=== PATIENT | male | born 1990 | race Caucasian/White ===

== ENCOUNTER 2019-11-15 14:50 | Emergency (ER) | payer MEDICAID, MEDICARE, OTHER ==
[~2019-11-15] VITALS: Ht 165.1 cm; Wt 171.0 kg
[~2019-11-15 14:50] MED LIST: DEXT10TA7 PO; DIVA125T2 PO; LEVO25TA4 PO; LITH150C PO; NICO-485 TD; TRAZ50TA66 PO
[2019-11-15 15:29] VITALS: BP 119/61
[2019-11-15] MEDS ORDERED: ARIP300S SQ (15:33)
== END 2019-11-15 16:24 | disposition home or self-care (01) ==
LOC: ED 16:23
DX: K60.0 Acute anal fissure (principal)
CPT/HCPCS: 99283

== ENCOUNTER 2020-07-04 19:15 | Emergency (ER) | payer MEDICARE ==
[~2020-07-04] VITALS: Ht 165.1 cm; Wt 164.0 kg
[~2020-07-04 19:15] MED LIST changes: +ARIP300S SQ; +CEFD300C37 PO; +LISI5TAB7 PO
--- NOTE | 2020-07-04 19:40 | NUR ---
ALL PT BELONGINGS MOVED FROM ROOM, BAGGED, LABELED, AND PLACED IN PSYCH LOCKER. GARAGE DOORS PULLED. SITTER IN DIRECT LINE OF SIGHT. L2K PLACED ON CHART WITH ERP. PT DENIES ANY NEEDS OR CONCERNS AT THIS TIME.
--- NOTE | 2020-07-04 20:27 | NUR ---
PT SNORING LOUDLY, ROUSED PER VERBAL STIMULI. PT PROVIDED WITH URINAL FOR UDS COLLECTION. VERBALIZES UNDERSTANDING. UPDATED ON EXPECTATIONS AND PROCEDURE FOR TELEPSYCH. DENIES ANY CURRENT NEEDS OR CONCERNS.
[2020-07-04 20:45] LABS: BASOPHILS % (AUTO) 1 % (0-1); EOSINOPHILS % (AUTO) 3 % (1-7); LYMPHOCYTES % (AUTO) 22 % (22-44); MEAN CORPUSCULAR HEMOGLOBIN 30.2 pg (27.5-34.5); MEAN PLATELET VOLUME 8.8 fL (7.4-10.4); MONOCYTES % (AUTO) 9 % (2-9); NEUTROPHILS % (AUTO) 65 % (42-75); PLATELET COUNT 298 x10^3/uL (130-400); RED BLOOD COUNT 5.57 x10^6/uL (4.38-5.82); RED CELL DISTRIBUTION WIDTH 16.8 % (9.4-14.8)
[2020-07-04 20:46] LABS: MD NO
[2020-07-04 20:57] LABS: ALBUMIN 3.1 g/dL (3.4-5.0); ANION GAP 4 mmol/L (5-15); CALCIUM 9.4 mg/dL (8.5-10.1); CHLORIDE 104 mmol/L (98-107); CREATININE 0.98 mg/dL (0.7-1.3)
--- NOTE | 2020-07-04 21:03 | NUR ---
PT PROVIDED WITH WATER AND REMINDED OF NEED FOR A URINE SAMPLE.
--- NOTE | 2020-07-04 21:14 | NUR ---
THROUGHPUT RN: TELEPSYCH CONSULT REQUESTED.
[2020-07-04 21:19] LABS: SALICYLATE LEVEL < 1.7 mg/dL (2.8-20.0)
--- NOTE | 2020-07-04 21:25 | NUR ---
PT REMINDED OF NEED FOR URINE SAMPLE. DENIES ABILITY TO URINATE AT THIS TIME. TELEPSYCH MONITOR ACTIVE AT THIS TIME.
--- NOTE | 2020-07-04 22:33 | NUR ---
PT RESTING IN BED, EYES CLOSED. STILL HAS NOT PROVIDED A URINE SAMPLE. PT AWARE OF NEED. NAD NOTED. SITTER CONTINUES IN DIRECT LINE OF SIGHT.
[2020-07-05 00:01] LABS: AMPHETAMINE SCREEN, URINE Negative (Negative); BARBITURATE SCREEN, URINE Negative (Negative); BENZODIAZEPINE SCREEN, URINE Negative (Negative); CANNABINOID SCREEN, URINE Negative (Negative); COCAINE SCREEN, URINE Negative (Negative); METHADONE SCREEN, URINE Negative (Negative); OPIATE SCREEN, URINE Negative (Negative)
--- NOTE | 2020-07-05 01:34 | NUR ---
PT SLEEPING SOUNDLY IN BED, SITTER CONTINUES IN DIRECT LINE OF SIGHT.
--- NOTE | 2020-07-05 03:53 | NUR ---
PT RESTING IN BED ON HIS LEFT SIDE, SNORING ALOUD. RESPIRATIONS EVEN AND UNLABORED. NAD NOTED. SITTER CONTINUES IN DIRECT LINE OF SIGHT.
--- NOTE | 2020-07-05 04:37 | NUR ---
PT CONTINUES SLEEPING SOUNDLY, IN DIRECT LINE OF SITTER. NAD NOTED.
--- NOTE | 2020-07-05 06:41 | NUR ---
PT UP TO RESTROOM, SITTER AT SIDE. DENIES ANY NEEDS OR CONCERNS AT THIS TIME.
--- NOTE | 2020-07-05 07:12 | NUR ---
Report received and care assumed. Pt lying on Right side, with sleep apnea-patterned respirations in combination with snoring when he starts breathing after a pause. Room cleaned and RN and PSA posted outside of room to ensure pt safety from self and falls. Room cleared of any belongings or items with exception of teledoc robot.
--- NOTE | 2020-07-05 09:30 | NUR ---
Pt ate 100% of his breakfast tray, sitting in chair in room A/O x4 and requests his mother be contacted to let her know where he is and that he is safe.
--- NOTE | 2020-07-05 10:20 | NUR ---
Pt lying on right side in bed sleeping at this time.
--- NOTE | 2020-07-05 13:14 | NUR ---
Pt moving in room from chair to bed, falls asleep briefly, then gets back up. States he feels restless since he knows he is waiting for transport to [facility].
--- NOTE | 2020-07-05 14:00 | NUR ---
Pt sitting up in chair and provided snacks and juice while awaiting transport crew. Affect is calm, cooperative and verbalized gratitude for care.
[2020-07-05 14:55] VITALS: BP 126/60
== END 2020-07-05 14:58 ==
LOC: ED 19:40
DX: S51.812A Laceration without foreign body of left forearm, initial encounter (principal); R45.851 Suicidal ideations; F32.9 Major depressive disorder, single episode, unspecified; E03.9 Hypothyroidism, unspecified; F15.10 Other stimulant abuse, uncomplicated; F17.210 Nicotine dependence, cigarettes, uncomplicated; W45.8XXA Other foreign body or object entering through skin, initial encounter; Y93.89 Activity, other specified; Y92.89 Other specified places as the place of occurrence of the external cause; Y99.8 Other external cause status
CPT/HCPCS: 36415; 80048; 80299; 80307; 80320; 80329; 82040; 85025; 99285; 99406; G0480

== ENCOUNTER 2020-08-31 17:55 | Emergency (ER) | payer MEDICARE, MEDICAID ==
[~2020-08-31] VITALS: Ht 165.1 cm; Wt 130.0 kg
--- NOTE | 2020-08-31 18:13 | NUR ---
PT BIB [facility]. PT HAS HISTORY OF DEPRESSION/ANXIETY AND SUBSTANCE ABUSE. PT WAS ADMITTED TO [facility] 2 MONTHS AGO FOR SI. PT PRESENTS TODAY WITH SI AGAIN. PT STATES THAT HE WANTED TO CUT HIMSELF IN ATTEMPT TO KILL HIMSELF. PT STATED THAT HE STARTED CUTTING HIS FOREARM TODAY, BUT THEN CALLED 911 FOR HELP. SUPERFICIAL CUTS NOTED ON LEFT FOREARM. SAFETY PRECAUTIONS IN PLACE. PT BELONGINGS PLACED IN LOCKER
--- NOTE | 2020-08-31 18:40 | NUR ---
ZOË LUZ AT BEDSIDE FOR EVALUATION
--- NOTE | 2020-08-31 18:45 | NUR ---
Report to Yoni moura
--- NOTE | 2020-08-31 18:48 | NUR ---
REPORT GIVEN TO SILVIA DURON
[2020-08-31] MEDS ORDERED: LORazepam 1MG TABLET ONE (19:00)
[2020-08-31] MEDS ORDERED: LORazepam 1MG TABLET PO ONE (19:00)
[2020-08-31 19:03] LABS: BASOPHILS % (AUTO) 1 % (0-1); EOSINOPHILS % (AUTO) 3 % (1-7); LYMPHOCYTES % (AUTO) 20 % (22-44); MEAN CORPUSCULAR HEMOGLOBIN 30.8 pg (27.5-34.5); MEAN CORPUSCULAR HGB CONC 33.4 g/dL (33.2-36.2); MEAN PLATELET VOLUME 8.8 fL (7.4-10.4); MONOCYTES % (AUTO) 6 % (2-9); NEUTROPHILS % (AUTO) 70 % (42-75); PLATELET COUNT 300 x10^3/uL (130-400); RED BLOOD COUNT 5.85 x10^6/uL (4.38-5.82); RED CELL DISTRIBUTION WIDTH 16.3 % (9.4-14.8)
[2020-08-31 19:04] LABS: MD NO
[2020-08-31 19:13] LABS: ALANINE AMINOTRANSFERASE 36 U/L (12-78); ALBUMIN 3.5 g/dL (3.4-5.0); ANION GAP 6 mmol/L (5-15); CALCIUM 9.2 mg/dL (8.5-10.1); CHLORIDE 107 mmol/L (98-107); CREATININE 0.98 mg/dL (0.7-1.3)
[2020-08-31 19:15] LABS: ALKALINE PHOSPHATASE 72 U/L (45-117); BILIRUBIN,TOTAL 0.8 mg/dL (0.2-1.0); TOTAL PROTEIN 7.8 g/dL (6.4-8.2)
[2020-08-31 19:18] LABS: SALICYLATE LEVEL < 1.7 mg/dL (2.8-20.0)
--- NOTE | 2020-08-31 21:14 | NUR ---
pt resting in bed, pt room si secure with sitter at pt door. pt has no complaints at this time.
--- NOTE | 2020-08-31 21:14 | NUR ---
pt aware that urine is needed for placement.
[2020-08-31 22:28] LABS: AMPHETAMINE SCREEN, URINE Negative (Negative); BARBITURATE SCREEN, URINE Negative (Negative); BENZODIAZEPINE SCREEN, URINE Negative (Negative); CANNABINOID SCREEN, URINE Negative (Negative); COCAINE SCREEN, URINE Negative (Negative); METHADONE SCREEN, URINE Negative (Negative); OPIATE SCREEN, URINE Negative (Negative)
[2020-08-31 22:33] VITALS: BP 136/87
[2020-08-31] MEDS ORDERED: NEOSPORIN OINT. PKT 1 PACKET ONE (22:37)
[2020-08-31] MEDS ORDERED: GABAPENTIN 300 MG CAPSULE PO ONE (23:00)
[2020-08-31] MEDS ORDERED: ARIPIPRAZOLE 400 MG INJ NC IM ONE (23:00)
[2020-08-31] MEDS ORDERED: DIPH,PERTUSS(ACELL),TET VAC/PF 0.5 ML IM-VACC ONE ×2 (23:30→23:32)
[2020-08-31] MEDS ORDERED: GABAPENTIN 300 MG CAPSULE ONE (23:31)
[2020-08-31] MEDS ORDERED: QUETIAPINE 100MG TABLET ONE (23:31)
[2020-09-01] MEDS ORDERED: QUETIAPINE 100MG TABLET PO SCH (21:00)
[2020-09-02] MEDS ORDERED: METF500T17 PO (11:14)
[2020-09-02] MEDS ORDERED: BUPR100T11 PO (11:14)
[2020-09-02] MEDS ORDERED: ARIP10TA33 PO (11:14)
[2020-09-02] MEDS ORDERED: TOPI25TA8 PO (11:14)
[2020-09-02] MEDS ORDERED: GABA300C PO (11:14)
== END 2020-09-01 01:39 ==
LOC: ED 20:19 → 3E 09-01 00:05 → UNDOADMIN 09-01 00:05 → 3E 09-01 00:13 → UNDOADMIN 09-01 00:13 → ED 09-01 01:39
DX: S51.812A Laceration without foreign body of left forearm, initial encounter (principal); Z20.822 Contact with and (suspected) exposure to COVID-19; R45.851 Suicidal ideations; F20.9 Schizophrenia, unspecified; F32.9 Major depressive disorder, single episode, unspecified; F17.210 Nicotine dependence, cigarettes, uncomplicated; E03.9 Hypothyroidism, unspecified; Y33.XXXA Other specified events, undetermined intent, initial encounter; Y93.89 Activity, other specified; Y92.89 Other specified places as the place of occurrence of the external cause; Y99.8 Other external cause status
CPT/HCPCS: 36415; 80053; 80299; 80307; 80320; 80329; 85025; 87426; 90471; 90715; 96372; 99285; 99406; G0480

== ENCOUNTER 2020-09-01 00:32 | Inpatient (IN) | payer MEDICAID, MEDICARE ==
[~2020-09-01] VITALS: Ht 165.1 cm; Wt 185.8 kg
[2020-09-01] MEDS ORDERED: ONDANSETRON ODT 4 MG PO PRN (01:00)
[2020-09-01] MEDS ORDERED: DOCUSATE 100 MG CAPSULE PO PRN (01:00)
[2020-09-01] MEDS ORDERED: BISACODYL 10 MG SUPP PR PRN (01:00)
[2020-09-01] MEDS ORDERED: POLYETHYLENE GLYCOL 17 GM PACKET PO PRN (01:00)
[2020-09-01 01:30] VITALS: BP 105/79
[2020-09-01 01:58] LABS: MICROSCOPIC NOT IND
[2020-09-01] MEDS ORDERED: PLEASE ENTER HEIGHT AND WEIGHT MC SCH (02:00)
[2020-09-01 03:09] LABS: CHOL/HDL RATIO 5.4; FREE T4 (FREE THYROXINE) 0.79 ng/dL (0.76-1.46); LDL/HDL RATIO 2.8 (0.5-3.0)
[2020-09-01 07:36] VITALS: BP 106/70
[2020-09-01] MEDS ORDERED: NICOTINE 7 MG/24 HR PATCH.TD24 TD SCH (14:30)
[2020-09-01] MEDS: FLUOXETINE 10 MG CAP PO SCH (15:22)
[2020-09-01 19:38] VITALS: BP 130/80
[2020-09-01] MEDS: ZIPRASIDONE 20MG CAPSULE PO SCH (20:03)
[2020-09-01] MEDS ORDERED: TOPIRAMATE 25 MG TABLET PO SCH (21:00)
[2020-09-02 07:35] VITALS: BP 102/68
[2020-09-02] MEDS: LISINOPRIL 5 MG TABLET PO SCH (08:28)
[2020-09-02] MEDS: FLUOXETINE 10 MG CAP PO SCH (08:45)
[2020-09-02] MEDS: LEVOTHYROXINE 25 MCG TABLET PO SCH (08:47)
[2020-09-02] MEDS ORDERED: LEVOTHYROXINE 25 MCG TABLET PO SCH (09:00)
[2020-09-02] MEDS ORDERED: GABA300C PO (11:14)
[2020-09-02] MEDS ORDERED: BUPR100T11 PO (11:14)
[2020-09-02] MEDS ORDERED: TOPI25TA8 PO (11:14)
[2020-09-02] MEDS ORDERED: ARIP10TA33 PO (11:14)
[2020-09-02] MEDS ORDERED: METF500T17 PO (11:14)
[2020-09-02 19:34] VITALS: BP 119/78
[2020-09-02] MEDS: ZIPRASIDONE 20MG CAPSULE PO SCH (19:59)
[2020-09-02] MEDS: TOPIRAMATE 25 MG TABLET PO SCH (20:00)
[2020-09-03] MEDS: LEVOTHYROXINE 25 MCG TABLET PO SCH (05:21)
[2020-09-03 07:51] VITALS: BP 112/72
[2020-09-03] MEDS: LISINOPRIL 5 MG TABLET PO SCH (09:00)
[2020-09-03] MEDS: FLUOXETINE 10 MG CAP PO SCH (09:44)
[2020-09-03] MEDS: ACETAMINOPHEN 325 MG TABLET PO PRN (09:44)
[2020-09-03 19:45] VITALS: BP 126/88
[2020-09-03] MEDS: ZIPRASIDONE 40MG CAPSULE PO SCH (20:36)
[2020-09-03] MEDS: TOPIRAMATE 25 MG TABLET PO SCH (20:37)
[2020-09-04] MEDS: LEVOTHYROXINE 25 MCG TABLET PO SCH (06:14)
[2020-09-04] MEDS: ACETAMINOPHEN 325 MG TABLET PO PRN ×2 (08:42→20:03)
[2020-09-04] MEDS: FLUOXETINE HCL 20 MG CAPSULE PO SCH (08:42)
[2020-09-04 10:20] VITALS: BP 126/79
[2020-09-04 19:19] VITALS: BP 117/73
[2020-09-04] MEDS: TOPIRAMATE 25 MG TABLET PO SCH (20:04)
[2020-09-04] MEDS: ZIPRASIDONE 40MG CAPSULE PO SCH (20:04)
[2020-09-05] MEDS: LEVOTHYROXINE 25 MCG TABLET PO SCH (06:16)
[2020-09-05 07:57] VITALS: BP 135/82
[2020-09-05] MEDS: FLUOXETINE HCL 20 MG CAPSULE PO SCH (08:39)
[2020-09-05 19:30] VITALS: BP 134/82
[2020-09-05] MEDS: ZIPRASIDONE 40MG CAPSULE PO SCH (20:02)
[2020-09-05] MEDS: TOPIRAMATE 25 MG TABLET PO SCH (20:03)
[2020-09-06] MEDS: LEVOTHYROXINE 25 MCG TABLET PO SCH (06:12)
[2020-09-06 07:50] VITALS: BP 143/89
[2020-09-06] MEDS: FLUOXETINE HCL 20 MG CAPSULE PO SCH (08:25)
[2020-09-06 19:30] VITALS: BP 141/83
[2020-09-06] MEDS: ZIPRASIDONE 40MG CAPSULE PO SCH (20:03)
[2020-09-06] MEDS: TOPIRAMATE 100 MG TABLET PO SCH (20:04)
[2020-09-07] MEDS: LEVOTHYROXINE 25 MCG TABLET PO SCH (05:44)
[2020-09-07 08:00] VITALS: BP 133/82
[2020-09-07] MEDS: FLUOXETINE HCL 20 MG CAPSULE PO SCH (08:17)
[2020-09-07 16:44] VITALS: BP 133/82
[2020-09-07 19:30] VITALS: BP 124/80
[2020-09-07] MEDS: TOPIRAMATE 100 MG TABLET PO SCH (19:49)
[2020-09-07] MEDS: ZIPRASIDONE 40MG CAPSULE PO SCH (19:49)
[2020-09-08] MEDS: LEVOTHYROXINE 25 MCG TABLET PO SCH (05:34)
[2020-09-08 07:27] VITALS: BP 137/90
[2020-09-08] MEDS: FLUOXETINE HCL 20 MG CAPSULE PO SCH (09:05)
[2020-09-08] MEDS ORDERED: TOPI100T24 PO (16:30)
[2020-09-08] MEDS ORDERED: ZIPR40CA2 PO (16:30)
[2020-09-08] MEDS ORDERED: FLUO20CA23 PO (16:30)
[2020-09-08] MEDS ORDERED: LEVO25TA2 PO (16:30)
[2020-09-08 19:22] VITALS: BP 125/80
[2020-09-08] MEDS: TOPIRAMATE 100 MG TABLET PO SCH (20:14)
[2020-09-08] MEDS: ZIPRASIDONE 40MG CAPSULE PO SCH (20:14)
[2020-09-09] MEDS ORDERED: CALCIUM CARBONATE 500 MG TAB.CHEW PO PRN (03:30)
[2020-09-09] MEDS: LEVOTHYROXINE 25 MCG TABLET PO SCH (05:25)
[2020-09-09 08:19] VITALS: BP 107/76
[2020-09-09] MEDS: FLUOXETINE HCL 20 MG CAPSULE PO SCH (09:01)
== END 2020-09-09 10:05 | disposition home or self-care (01) | DRG 885 ==
LOC: 3E 00:33 → UNDOADMIN 00:33 → 3E 01:34
PROVIDERS: ADMIT Psychiatry & Neurology Psychosomatic Medicine; ATTEND Psychiatry & Neurology Psychosomatic Medicine
DX: F25.0 Schizoaffective disorder, bipolar type (principal); F15.20 Other stimulant dependence, uncomplicated; Z68.44 Body mass index [BMI] 60.0-69.9, adult; R45.851 Suicidal ideations; E03.9 Hypothyroidism, unspecified; E66.01 Morbid (severe) obesity due to excess calories; G47.33 Obstructive sleep apnea (adult) (pediatric); G47.419 Narcolepsy without cataplexy; F17.210 Nicotine dependence, cigarettes, uncomplicated; G89.29 Other chronic pain; Z79.84 Long term (current) use of oral hypoglycemic drugs; Z79.899 Other long term (current) drug therapy; Z91.5 Personal history of self-harm; Z56.0 Unemployment, unspecified
CPT/HCPCS: 36415; 71045; 80061; 81003; 84439; 84443; 93005; 94660

== ENCOUNTER 2020-09-18 19:02 | Emergency (ER) | payer MEDICARE ==
[~2020-09-18] VITALS: Ht 165.1 cm; Wt 136.0 kg
[~2020-09-18 19:02] MED LIST changes: +ARIP10TA33 PO; +BUPR100T11 PO; +FLUO20CA23 PO; +GABA300C PO; +LEVO25TA2 PO; +METF500T17 PO; +TOPI100T24 PO; +TOPI25TA8 PO; +ZIPR40CA2 PO
[2020-09-18 19:03] VITALS: BP 116/75
--- NOTE | 2020-09-18 19:23 | NUR ---
PT STATES HE HASNT BEEN ABLE TO SLEEP IN WEEKS BECAUSE HIS CPAP MACHINE IS BROKEN AND HE SMOKES METH OCCASIONALLY. WHEN ASKED IF HE IS HAVING THOUGHTS ABOUT WANTING TO HURT HIMSELF HE STATES "A LITTLE BIT" PT STATES HE HAS BEEN OFF OF HIS PSYCH MEDS FOR ABOUT 3 DAYS AND IS NOW HEARING VOICES. PLAN TO HURT HIMSELF IS TO SHOOT HIMSELF IN THE HEAD. PT DOES NOT OWN OR HAVE EASY ACCESS TO A GUN, HE SAYS. ALL BELONGINGS COLLECETED INTO A PT BELONGINGS BAG AND PLACED INTO LOCKER. ROOM SECURED AND SITTER AT BEDSIDE FOR FREQUENT CHECKS.
[2020-09-18 20:34] LABS: BASOPHILS % (AUTO) 2 % (0-1); EOSINOPHILS % (AUTO) 3 % (1-7); LYMPHOCYTES % (AUTO) 20 % (22-44); MEAN CORPUSCULAR HEMOGLOBIN 30.7 pg (27.5-34.5); MEAN CORPUSCULAR HGB CONC 33.5 g/dL (33.2-36.2); MEAN PLATELET VOLUME 9.1 fL (7.4-10.4); MONOCYTES % (AUTO) 7 % (2-9); NEUTROPHILS % (AUTO) 68 % (42-75); PLATELET COUNT 311 x10^3/uL (130-400); RED BLOOD COUNT 5.61 x10^6/uL (4.38-5.82); RED CELL DISTRIBUTION WIDTH 15.9 % (9.4-14.8)
[2020-09-18 20:42] LABS: MD NO
[2020-09-18 20:43] LABS: ALANINE AMINOTRANSFERASE 27 U/L (12-78); ALBUMIN 3.3 g/dL (3.4-5.0); ANION GAP 5 mmol/L (5-15); CALCIUM 8.6 mg/dL (8.5-10.1); CHLORIDE 107 mmol/L (98-107); CREATININE 0.77 mg/dL (0.7-1.3)
[2020-09-18 20:46] LABS: ALKALINE PHOSPHATASE 58 U/L (45-117); BILIRUBIN,TOTAL 0.6 mg/dL (0.2-1.0); TOTAL PROTEIN 7.1 g/dL (6.4-8.2)
[2020-09-18] MEDS ORDERED: ZIPRASIDONE 40MG CAPSULE PO SCH (21:00)
[2020-09-18 21:02] LABS: SALICYLATE LEVEL < 1.7 mg/dL (2.8-20.0)
[2020-09-18 21:45] LABS: AMPHETAMINE SCREEN, URINE Negative (Negative); BARBITURATE SCREEN, URINE Negative (Negative); BENZODIAZEPINE SCREEN, URINE Negative (Negative); CANNABINOID SCREEN, URINE Positive (Negative); COCAINE SCREEN, URINE Negative (Negative); METHADONE SCREEN, URINE Negative (Negative); OPIATE SCREEN, URINE Negative (Negative)
--- NOTE | 2020-09-18 21:52 | NUR ---
PT RESTING ON GURNEY. PT AMBULATED TO BATHROOM FOR URINE SAMPLE. PT TO RECIEVE TELEPSYCH CONSULT.
[2020-09-18] MEDS ORDERED: ZIPRASIDONE 20MG CAPSULE ONE (21:55)
[2020-09-18] MEDS ORDERED: FLUOXETINE HCL 20 MG CAPSULE ONE (21:56)
--- NOTE | 2020-09-18 22:33 | NUR ---
PER LAW, PT TO BE MEDICATED AND TO BE DSICHARGED. PT BELONGINGS RETURNED.
[2020-09-19] MEDS ORDERED: FLUOXETINE HCL 20 MG CAPSULE PO SCH (09:00)
[2020-09-19] MEDS ORDERED: TOPIRAMATE 100 MG TABLET PO SCH (09:00)
== END 2020-09-18 22:49 | disposition home or self-care (01) ==
LOC: ED 22:43
DX: F15.151 Other stimulant abuse with stimulant-induced psychotic disorder with hallucinations (principal); F20.9 Schizophrenia, unspecified; F31.9 Bipolar disorder, unspecified; E03.9 Hypothyroidism, unspecified; F17.210 Nicotine dependence, cigarettes, uncomplicated; Z72.9 Problem related to lifestyle, unspecified
CPT/HCPCS: 36415; 80053; 80299; 80307; 80320; 80329; 85025; 99284; 99406; Q0177; G0480

== ENCOUNTER 2020-10-30 14:39 | Emergency (ER) | payer MEDICARE ==
[~2020-10-30] VITALS: Ht 165.1 cm; Wt 159.0 kg
[~2020-10-30 14:39] MED LIST changes: +AZIT250T89 PO
--- NOTE | 2020-10-30 14:45 | NUR ---
Assumed care of pt.
[2020-10-30] MEDS ORDERED: ARIP400S3 IM (15:05)
[2020-10-30] MEDS ORDERED: ARIPIPRAZOLE 400 MG INJ NC IM ONE (15:30)
[2020-10-30] MEDS ORDERED: FLUOXETINE 10 MG CAP PO ONE (15:30)
[2020-10-30] MEDS ORDERED: ARIPIPRAZOLE 10 MG TABLET PO ONE (15:30)
[2020-10-30 15:43] LABS: ALBUMIN 3.5 g/dL (3.4-5.0); ANION GAP 5 mmol/L (5-15); CALCIUM 9.4 mg/dL (8.5-10.1); CHLORIDE 102 mmol/L (98-107); CREATININE 0.86 mg/dL (0.7-1.3); SALICYLATE LEVEL 1.8 mg/dL (2.8-20.0)
[2020-10-30] MEDS ORDERED: ARIPIPRAZOLE 10 MG TABLET ONE (15:47)
[2020-10-30] MEDS ORDERED: FLUOXETINE 10 MG CAP ONE (15:48)
[2020-10-30 15:54] LABS: MEAN CORPUSCULAR HEMOGLOBIN 31.3 pg (27.5-34.5); MEAN CORPUSCULAR HGB CONC 33.8 g/dL (33.2-36.2); PLATELET COUNT 334 x10^3/uL (130-400); RED CELL DISTRIBUTION WIDTH 16.3 % (9.4-14.8)
[2020-10-30 15:57] LABS: MD YES
[2020-10-30 16:25] LABS: BAND#(MANUAL) 0.53 x10^3/uL; BANDS%(MANUAL) 3 % (0-7); EOS#(MANUAL) 0.35 x10^3/uL (0.0-0.4); EOS% (MANUAL) 2 % (1-7); LYMPHS% (MANUAL) 20 % (22-44); MONOS#(MANUAL) 1.05 x10^3/uL (0.3-2.7); MONOS% (MANUAL) 6 % (2-9); SEG#(MANUAL) 12.08 x10^3/uL (1.8-6.8); SEGS% (MANUAL) 69 % (42-75)
[2020-10-30 16:26] LABS: <PLATELET ESTIMATE> ADEQUATE; ANISOCYTOSIS 1+; POLYCHROMASIA 1+
[2020-10-30 16:27] LABS: <PLT MORPHOLOGY> NORMAL PLT MORPH
--- NOTE | 2020-10-30 16:48 | NUR ---
pt voided, but missed the hat. Additional fluids provided to pt with instruction to place hat in toilet when he needs to void so we can collect urine.
[2020-10-30 17:10] LABS: MICROSCOPIC NOT IND
[2020-10-30 17:23] LABS: AMPHETAMINE SCREEN, URINE Negative (Negative); BARBITURATE SCREEN, URINE Negative (Negative); BENZODIAZEPINE SCREEN, URINE Negative (Negative); CANNABINOID SCREEN, URINE Negative (Negative); COCAINE SCREEN, URINE Negative (Negative); METHADONE SCREEN, URINE Negative (Negative); OPIATE SCREEN, URINE Negative (Negative)
--- NOTE | 2020-10-30 18:10 | NUR ---
PATIENT IS HAVING ANXIETY AND IS REQUESTING A MEDICATION. CALLED [facility], WHO IS ORDERING PRN ANXIETY MEDS.
--- NOTE | 2020-10-30 18:20 | NUR ---
THROUGHPUT: PT MEDICALLY CLEARED, ON LEGAL HOLD AWAITING [facility] FOR ACCEPTING MD AND ROOM NUMBER
[2020-10-30] MEDS ORDERED: LORazepam 1MG TABLET PO PRN (18:30)
--- NOTE | 2020-10-30 19:54 | NUR ---
PT ANXIOUS AND WONDERING WHEN HE WILL GO UPSTAIRS. PT ADVISED THAT RN WILL CALL REPORT SOON WHEN THEYRE READY UPSTAIRS, AND PT MEDICATED WITH PRN MEDS FOR ANXIETY AND VERBALIZED COMFORT.
[2020-10-30 20:11] VITALS: BP 127/68
--- NOTE | 2020-10-30 21:48 | NUR ---
PT TAKEN TO U UNIT, WITH TECH, AND PTS BELONGINGS TAKEN WITH PT, FROM LOCKED UNIT.
== END 2020-10-30 21:51 ==
LOC: ED 15:55
DX: R45.851 Suicidal ideations (principal); E03.9 Hypothyroidism, unspecified; F20.9 Schizophrenia, unspecified; Z20.822 Contact with and (suspected) exposure to COVID-19
CPT/HCPCS: 36415; 71045; 80048; 80299; 80307; 80320; 81003; 82040; 85025; 87426; 96372; 99285; Q0177; 80329; G0480

== ENCOUNTER 2020-10-30 16:35 | Inpatient (IN) | payer MEDICARE ==
[~2020-10-30] VITALS: Ht 165.1 cm; Wt 186.2 kg
[~2020-10-30 16:35] MED LIST changes: +ARIP400S3 IM
[2020-10-30] MEDS ORDERED: ACETAMINOPHEN 325 MG TABLET PO PRN (20:30)
[2020-10-30] MEDS ORDERED: HYDROXYZINE PAMOATE 50MG CAP PO PRN (20:30)
[2020-10-30] MEDS: TOPIRAMATE 100 MG TABLET PO SCH (23:00)
[2020-10-30] MEDS: ZIPRASIDONE 40MG CAPSULE PO SCH (23:01)
[2020-10-30 23:29] VITALS: BP 126/77
[2020-10-31] MEDS ORDERED: CALCIUM CARBONATE 500 MG TAB.CHEW PO PRN (01:00)
[2020-10-31 06:02] LABS: CHLORIDE 104 mmol/L (98-107)
[2020-10-31] MEDS: LEVOTHYROXINE 25 MCG TABLET PO SCH (06:06)
[2020-10-31 06:30] VITALS: BP 129/77
[2020-10-31 06:37] LABS: ALANINE AMINOTRANSFERASE 28 U/L (12-78); ALBUMIN 3.4 g/dL (3.4-5.0); ALKALINE PHOSPHATASE 66 U/L (45-117); ANION GAP 4 mmol/L (5-15); BILIRUBIN,TOTAL 0.9 mg/dL (0.2-1.0); CALCIUM 9.3 mg/dL (8.5-10.1); CREATININE 0.69 mg/dL (0.7-1.3); FREE T4 (FREE THYROXINE) 0.77 ng/dL (0.76-1.46); TOTAL PROTEIN 7.4 g/dL (6.4-8.2)
[2020-10-31] MEDS: NICOTINE 21 MG/24 HR PATCH.TD24 TD SCH (08:32)
[2020-10-31] MEDS: LISINOPRIL 5 MG TABLET PO SCH (08:32)
[2020-10-31] MEDS: FLUOXETINE HCL 20 MG CAPSULE PO SCH (08:32)
[2020-10-31 19:40] VITALS: BP 113/74
[2020-10-31] MEDS: TOPIRAMATE 100 MG TABLET PO SCH (20:07)
[2020-10-31] MEDS: ZIPRASIDONE 40MG CAPSULE PO SCH (20:07)
[2020-11-01 05:37] LABS: BASOPHILS % (AUTO) 2 % (0-1); EOSINOPHILS % (AUTO) 2 % (1-7); LYMPHOCYTES % (AUTO) 18 % (22-44); MEAN CORPUSCULAR HGB CONC 33.6 g/dL (33.2-36.2); MEAN PLATELET VOLUME 8.5 fL (7.4-10.4); MONOCYTES % (AUTO) 7 % (2-9); NEUTROPHILS % (AUTO) 72 % (42-75); PLATELET COUNT 283 x10^3/uL (130-400); RED BLOOD COUNT 5.44 x10^6/uL (4.38-5.82); RED CELL DISTRIBUTION WIDTH 16.2 % (9.4-14.8)
[2020-11-01 05:41] LABS: MD NO
[2020-11-01] MEDS: LEVOTHYROXINE 25 MCG TABLET PO SCH (06:22)
[2020-11-01 07:20] VITALS: BP 112/79
[2020-11-01] MEDS: NICOTINE 21 MG/24 HR PATCH.TD24 TD SCH (09:00)
[2020-11-01] MEDS: LISINOPRIL 5 MG TABLET PO SCH (09:28)
[2020-11-01] MEDS: FLUOXETINE HCL 20 MG CAPSULE PO SCH (09:29)
[2020-11-01 19:35] VITALS: BP 95/65
[2020-11-01] MEDS: TOPIRAMATE 100 MG TABLET PO SCH (20:21)
[2020-11-01] MEDS: ZIPRASIDONE 40MG CAPSULE PO SCH (20:21)
[2020-11-02] MEDS: LEVOTHYROXINE 25 MCG TABLET PO SCH (05:19)
[2020-11-02 07:50] VITALS: BP 129/84
[2020-11-02 07:53] VITALS: BP 132/82
== END 2020-11-02 08:00 | disposition home or self-care (01) | DRG 885 ==
LOC: 3E 20:43
PROVIDERS: ADMIT Psychiatry & Neurology Psychosomatic Medicine; ATTEND Psychiatry & Neurology Psychosomatic Medicine
PROC: 5A09457 Assistance with Respiratory Ventilation, 24-96 Consecutive Hours, Continuous Positive Airway Pressure (ICD-10-PCS; principal; 2020-10-30)
DX: F25.0 Schizoaffective disorder, bipolar type (principal); R45.851 Suicidal ideations; F15.20 Other stimulant dependence, uncomplicated; Z68.44 Body mass index [BMI] 60.0-69.9, adult; G47.30 Sleep apnea, unspecified; E66.01 Morbid (severe) obesity due to excess calories; E03.9 Hypothyroidism, unspecified; G47.33 Obstructive sleep apnea (adult) (pediatric); D75.1 Secondary polycythemia; R73.03 Prediabetes; D72.828 Other elevated white blood cell count; F17.210 Nicotine dependence, cigarettes, uncomplicated; Z56.0 Unemployment, unspecified
CPT/HCPCS: 36415; 36600; 71045; 80053; 82607; 82803; 84145; 84439; 84443; 85025; 93005; 94660

== ENCOUNTER 2020-11-20 20:45 | Emergency (ER) | payer MEDICARE, MEDICAID ==
[~2020-11-20] VITALS: Ht 165.1 cm; Wt 186.7 kg
[~2020-11-20 20:45] MED LIST changes: +ENOX30DI3 SQ; +METF500T PO
[2020-11-20 20:53] VITALS: BP 116/66
--- NOTE | 2020-11-20 21:47 | NUR ---
PT LEFT AMA FROM LOBBY, AMA SIGNED BY PT.
== END 2020-11-21 13:30 | disposition left against medical advice (07) ==
LOC: ED 21:00
DX: R06.02 Shortness of breath (principal); Z53.21 Procedure and treatment not carried out due to patient leaving prior to being seen by health care provider
CPT/HCPCS: 93005; 99283

== ENCOUNTER 2020-12-05 10:40 | Emergency (ER) | payer MEDICARE, MEDICAID ==
[~2020-12-05] VITALS: Ht 165.1 cm; Wt 170.0 kg
[2020-12-05] MEDS ORDERED: ONDANSETRON 2MG/ML, 2ML IVPush ONE (11:00)
[2020-12-05] MEDS ORDERED: SODIUM CHLORIDE FLUSH 10ML SYR IVF ONE (11:00)
[2020-12-05] MEDS ORDERED: PLEASE ENTER HEIGHT AND WEIGHT MC SCH (11:00)
[2020-12-05] MEDS ORDERED: MORPHINE SULFATE 4 MG/ML, 1ML IVPush PRN (11:00)
[2020-12-05 11:27] LABS: BASOPHILS % (AUTO) 1 % (0-1); EOSINOPHILS % (AUTO) 2 % (1-7); LYMPHOCYTES % (AUTO) 22 % (22-44); MEAN CORPUSCULAR HEMOGLOBIN 31.6 pg (27.5-34.5); MEAN PLATELET VOLUME 8.7 fL (7.4-10.4); MONOCYTES % (AUTO) 6 % (2-9); NEUTROPHILS % (AUTO) 68 % (42-75); PLATELET COUNT 342 x10^3/uL (130-400); RED BLOOD COUNT 5.83 x10^6/uL (4.38-5.82); RED CELL DISTRIBUTION WIDTH 16.4 % (9.4-14.8)
[2020-12-05 11:28] LABS: MD NO
[2020-12-05 11:40] LABS: ALBUMIN 3.6 g/dL (3.4-5.0); ANION GAP 2 mmol/L (5-15); CALCIUM 9.6 mg/dL (8.5-10.1); CHLORIDE 103 mmol/L (98-107)
[2020-12-05 11:44] LABS: ALANINE AMINOTRANSFERASE 26 U/L (12-78); ALKALINE PHOSPHATASE 71 U/L (45-117); BILIRUBIN,TOTAL 1.3 mg/dL (0.2-1.0); CREATININE 0.78 mg/dL (0.7-1.3); TOTAL PROTEIN 7.6 g/dL (6.4-8.2)
[2020-12-05] MEDS ORDERED: ONDANSETRON 2MG/ML, 2ML ONE (11:49)
[2020-12-05] MEDS ORDERED: MORPHINE SULFATE 4 MG/ML, 1ML ONE (11:50)
--- NOTE | 2020-12-05 11:53 | NUR ---
IV PLACED WITH US BY ED MEDIC. THIS RN IN TO GIVE PAIN MEDICATION PER ERP ORDER. PT EXTREMELY DROWSY, DIFFICULT TO AROUSE. PT SLEEPING DURING IV START AND LAB DRAW WELL. MORPHINE HELD AT THIS TIME. ERP NOTIFIED.
[2020-12-05] MEDS ORDERED: OMNIPAQUE 350 MG/ML, 150 ML BOTTLE ONE (12:37)
[2020-12-05 14:40] VITALS: BP 145/89
== END 2020-12-05 14:40 | disposition home or self-care (01) ==
LOC: ED 11:43
DX: R10.31 Right lower quadrant pain (principal); E11.9 Type 2 diabetes mellitus without complications; E03.9 Hypothyroidism, unspecified
CPT/HCPCS: 36415; 74177; 80053; 85025; 99285; Q9967

== ENCOUNTER 2020-12-13 19:44 | Emergency (ER) | payer MEDICARE, MEDICAID ==
[~2020-12-13] VITALS: Ht 165.1 cm; Wt 164.0 kg
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
--- NOTE | 2020-12-13 20:53 | NUR ---
RECEIVED REPORT FROM GALLITO VEGA. ASSUMING CARE AT THIS TIME. PT IN SECURE ROOM. PT IN DIRECT SIGHT OF SITTER. BENCH EXAMINER AT BEDSIDE. PT AWARE OF NEED FOR URINE.
[2020-12-13 21:06] LABS: MEAN CORPUSCULAR HEMOGLOBIN 31.6 pg (27.5-34.5); MEAN CORPUSCULAR HGB CONC 33.6 g/dL (33.2-36.2); MEAN PLATELET VOLUME 8.8 fL (7.4-10.4); PLATELET COUNT 214 x10^3/uL (130-400); RED BLOOD COUNT 5.47 x10^6/uL (4.38-5.82); RED CELL DISTRIBUTION WIDTH 16.5 % (9.4-14.8)
[2020-12-13 21:18] LABS: CHLORIDE 108 mmol/L (98-107)
--- NOTE | 2020-12-13 21:22 | NUR ---
[facility]) WILL ACCEPT
[2020-12-13 21:23] LABS: ALANINE AMINOTRANSFERASE 25 U/L (12-78); ALBUMIN 3.2 g/dL (3.4-5.0); ALKALINE PHOSPHATASE 66 U/L (45-117); ANION GAP 4 mmol/L (5-15); BILIRUBIN,TOTAL 1.1 mg/dL (0.2-1.0); CALCIUM 8.5 mg/dL (8.5-10.1); CREATININE 0.72 mg/dL (0.7-1.3); SALICYLATE LEVEL < 1.7 mg/dL (2.8-20.0); TOTAL PROTEIN 7.6 g/dL (6.4-8.2)
[2020-12-13 21:33] LABS: <PLATELET ESTIMATE> ADEQUATE; <PLT MORPHOLOGY> NORMAL PLT MORPH; ANISOCYTOSIS 1+; LYMPH#(MANUAL) 4.22 x10^3/uL (1-3.4); LYMPHS% (MANUAL) 32 % (22-44); MONOS#(MANUAL) 0.92 x10^3/uL (0.3-2.7); MONOS% (MANUAL) 7 % (2-9); SEG#(MANUAL) 8.05 x10^3/uL (1.8-6.8); SEGS% (MANUAL) 61 % (42-75)
--- NOTE | 2020-12-13 21:45 | NUR ---
THIS RN AND AURICULAR ACUPUNCTURIST ATTEMPTED TO ASSIST PT TO STAND BEDSIDE BED TO PROVIDE URINE SAMPLE. PT STATES PULLED GROIN HURTS AND UNABLE TO MOVE LEGS TO TURN TO SIT ON GURNEY. PT UNABLE TO PROVIDE URINE SAMPLE LAYING DOWN. ERPA NOTIFIED, OK TO COLLECTED URINE VIA STRAIGHT CATH. PT AGREES TO [facility] CATH.
--- NOTE | 2020-12-13 22:14 | NUR ---
COVID SWAB COLLECTED AND TAKEN TO LAB.
--- NOTE | 2020-12-13 22:17 | NUR ---
URINE COLLECTED VIA STRAIGHT CATH AND TAKEN TO LAB. DRAINED ABOUT 200ML YELLOW URINE.
[2020-12-13 22:29] VITALS: BP 120/60
--- NOTE | 2020-12-13 22:30 | NUR ---
REPORT GIVEN TO NOA VEGA IN U. PT RTG AFTER UDS AND RAPID COVID RESULTS.
[2020-12-13 22:31] LABS: AMPHETAMINE SCREEN, URINE Positive (Negative); BARBITURATE SCREEN, URINE Negative (Negative)
[2020-12-13 22:35] LABS: BENZODIAZEPINE SCREEN, URINE Negative (Negative); CANNABINOID SCREEN, URINE Negative (Negative); COCAINE SCREEN, URINE Negative (Negative); METHADONE SCREEN, URINE Negative (Negative); OPIATE SCREEN, URINE Negative (Negative)
--- NOTE | 2020-12-13 22:59 | NUR ---
Report from Roseann VEGA
--- NOTE | 2020-12-13 23:02 | NUR ---
INDWELLING CATHETER INSERTED PER ERMD ORDER. PT RTG TO U.
== END 2020-12-13 23:00 | disposition home or self-care (01) ==
LOC: ED 20:00
DX: R45.851 Suicidal ideations (principal); S51.812A Laceration without foreign body of left forearm, initial encounter; E11.9 Type 2 diabetes mellitus without complications; E03.9 Hypothyroidism, unspecified; F17.210 Nicotine dependence, cigarettes, uncomplicated; F15.10 Other stimulant abuse, uncomplicated; Z20.822 Contact with and (suspected) exposure to COVID-19; Z72.9 Problem related to lifestyle, unspecified; Z91.14 Patient's other noncompliance with medication regimen; X83.8XXA Intentional self-harm by other specified means, initial encounter; Y93.89 Activity, other specified; Y92.89 Other specified places as the place of occurrence of the external cause; Y99.8 Other external cause status
CPT/HCPCS: 36415; 51702; 80053; 80299; 80307; 80320; 80329; 85025; 87426; 99406; G0480

== ENCOUNTER 2020-12-19 13:48 | Inpatient (IN) | payer MEDICARE, MEDICAID ==
[~2020-12-19] VITALS: Ht 165.1 cm; Wt 183.0 kg
[2020-12-19] MEDS ORDERED: ENALAPRILAT 1.25 MG/ML, 2ML IVPush PRN (14:00)
[2020-12-19] MEDS ORDERED: hydrALAzine 20 MG/ML, 1ML IVPush PRN (14:00)
[2020-12-19] MEDS ORDERED: ONDANSETRON 2MG/ML, 2ML IVPush PRN (14:00)
[2020-12-19] MEDS ORDERED: GLUCAGON 1 MG IM PRN ×2 (14:30→16:30)
[2020-12-19] MEDS: PLEASE ENTER HEIGHT AND WEIGHT MC SCH ×2 (14:30→22:30)
[2020-12-19] MEDS ORDERED: DEXTROSE 50%, 50ML SYRINGE IVPush PRN ×2 (14:30→16:30)
[2020-12-19] MEDS ORDERED: DEXTROSE 4 GM TAB.CHEW PO PRN ×2 (14:30→16:30)
[2020-12-19] MEDS ORDERED: PROPOFOL 100 ML IV ONE (15:38)
[2020-12-19 15:50] LABS: BASOPHILS % (AUTO) 0 % (0-1); EOSINOPHILS % (AUTO) 1 % (1-7); LYMPHOCYTES % (AUTO) 8 % (22-44); MEAN CORPUSCULAR HEMOGLOBIN 31.9 pg (27.5-34.5); MEAN CORPUSCULAR HGB CONC 33.2 g/dL (33.2-36.2); MEAN PLATELET VOLUME 8.4 fL (7.4-10.4); MONOCYTES % (AUTO) 8 % (2-9); NEUTROPHILS % (AUTO) 84 % (42-75); PLATELET COUNT 251 x10^3/uL (130-400); RED BLOOD COUNT 5.06 x10^6/uL (4.38-5.82); RED CELL DISTRIBUTION WIDTH 15.6 % (9.4-14.8)
[2020-12-19 15:52] LABS: ALANINE AMINOTRANSFERASE 29 U/L (12-78); ALBUMIN 3.2 g/dL (3.4-5.0); ANION GAP 1 mmol/L (5-15); CALCIUM 9.1 mg/dL (8.5-10.1); CHLORIDE 103 mmol/L (98-107)
[2020-12-19 15:56] LABS: ALKALINE PHOSPHATASE 70 U/L (45-117); TOTAL PROTEIN 7.2 g/dL (6.4-8.2); TROPONIN I < 0.015 ng/mL (0.000-0.045)
[2020-12-19] MEDS: INSULIN LISPRO 100 UNITS/ML, PEN SQ-INSULIN SCH ×2 (16:00→20:01)
[2020-12-19] MEDS: ENOXAPARIN 40 MG/0.4 ML SQ SCH (16:10)
[2020-12-19] MEDS ORDERED: SENNA 176 MG/5 ML ORAL SOL NG PRN (16:30)
[2020-12-19] MEDS ORDERED: BISACODYL 10 MG SUPP PR PRN (16:30)
[2020-12-19] MEDS ORDERED: FENTANYL PF 100 MCG/2ML IVPush PRN (16:30)
[2020-12-19] MEDS ORDERED: PHARMACY MAY ADJ FOR RENAL FX MC SCH (16:30)
[2020-12-19] MEDS ORDERED: SENNA/DOCUSATE TABLET NG PRN (16:30)
[2020-12-19] MEDS ORDERED: LACTULOSE 20 GM/30 ML UDC NG PRN (16:30)
[2020-12-19] MEDS ORDERED: NOREPINEPHRINE 8 MG in SODIUM CHLORIDE 0.9% 242 ML IV PRN (16:30)
[2020-12-19] MEDS ORDERED: LIDOCAINE-MPF 1%, 2ML ENDO PRN (16:30)
[2020-12-19 16:46] VITALS: BP 119/75
[2020-12-19] MEDS: PROPOFOL 100 ML IV PRN ×3 (18:14→22:41)
[2020-12-19] MEDS: SODIUM CHLORIDE FLUSH 10ML SYR IVF SCH (20:01)
[2020-12-19 20:35] LABS: TROPONIN I < 0.015 ng/mL (0.000-0.045)
[2020-12-19] MEDS ORDERED: SODIUM CHLORIDE FLUSH 10ML SYR IVF SCH (21:00)
[2020-12-20] MEDS: PROPOFOL 100 ML IV PRN ×4 (01:20→07:23)
[2020-12-20 03:23] LABS: BASOPHILS % (AUTO) 1 % (0-1); EOSINOPHILS % (AUTO) 1 % (1-7); LYMPHOCYTES % (AUTO) 18 % (22-44); MEAN CORPUSCULAR HEMOGLOBIN 32.5 pg (27.5-34.5); MEAN CORPUSCULAR HGB CONC 34.5 g/dL (33.2-36.2); MEAN PLATELET VOLUME 8.3 fL (7.4-10.4); MONOCYTES % (AUTO) 8 % (2-9); NEUTROPHILS % (AUTO) 71 % (42-75); PLATELET COUNT 280 x10^3/uL (130-400); RED BLOOD COUNT 4.97 x10^6/uL (4.38-5.82); RED CELL DISTRIBUTION WIDTH 15.1 % (9.4-14.8)
[2020-12-20 03:36] LABS: ALANINE AMINOTRANSFERASE 36 U/L (12-78); ALBUMIN 3.1 g/dL (3.4-5.0); ANION GAP 5 mmol/L (5-15); CALCIUM 9.1 mg/dL (8.5-10.1); CHLORIDE 101 mmol/L (98-107); CREATININE 0.83 mg/dL (0.7-1.3)
[2020-12-20 03:37] LABS: TROPONIN I 0.141 ng/mL (0.000-0.045)
[2020-12-20 03:39] LABS: ALKALINE PHOSPHATASE 69 U/L (45-117); BILIRUBIN,TOTAL 1.6 mg/dL (0.2-1.0)
[2020-12-20] MEDS: INSULIN LISPRO 100 UNITS/ML, PEN SQ-INSULIN SCH ×4 (05:43→21:02)
[2020-12-20] MEDS: PLEASE ENTER HEIGHT AND WEIGHT MC SCH (06:24)
[2020-12-20] MEDS ORDERED: MAGNESIUM SULFATE PMX 2GM/50ML 50 ML IV ONE (07:00)
[2020-12-20] MEDS ORDERED: ONDANSETRON 2MG/ML, 2ML IV PRN (08:00)
[2020-12-20] MEDS: PANTOPRAZOLE 40 MG IV IVPush SCH (08:53)
[2020-12-20] MEDS: SODIUM CHLORIDE FLUSH 10ML SYR IVF SCH ×2 (08:54→21:02)
[2020-12-20] MEDS: POTASSIUM CHLORIDE 20 MEQ PACKET PO SCH ×2 (08:54→16:30)
[2020-12-20] MEDS ORDERED: PANTOPRAZOLE 40 MG IV IV SCH (09:00)
[2020-12-20] MEDS ORDERED: LEVOTHYROXINE 100 MCG INJ IVPush SCH (09:00)
[2020-12-20 12:10] LABS: TROPONIN I < 0.015 ng/mL (0.000-0.045)
[2020-12-20] MEDS: ENOXAPARIN 40 MG/0.4 ML SQ SCH (16:30)
[2020-12-21 04:59] LABS: BASOPHILS % (AUTO) 1 % (0-1); EOSINOPHILS % (AUTO) 3 % (1-7); LYMPHOCYTES % (AUTO) 13 % (22-44); MEAN CORPUSCULAR HEMOGLOBIN 32.2 pg (27.5-34.5); MEAN CORPUSCULAR HGB CONC 34.1 g/dL (33.2-36.2); MEAN PLATELET VOLUME 8.7 fL (7.4-10.4); MONOCYTES % (AUTO) 7 % (2-9); NEUTROPHILS % (AUTO) 77 % (42-75); PLATELET COUNT 240 x10^3/uL (130-400); RED BLOOD COUNT 5.16 x10^6/uL (4.38-5.82); RED CELL DISTRIBUTION WIDTH 15.9 % (9.4-14.8)
[2020-12-21 05:07] LABS: ANION GAP 4 mmol/L (5-15); CALCIUM 8.9 mg/dL (8.5-10.1); CHLORIDE 104 mmol/L (98-107); CREATININE 0.78 mg/dL (0.7-1.3)
[2020-12-21] MEDS: INSULIN LISPRO 100 UNITS/ML, PEN SQ-INSULIN SCH ×4 (07:00→21:46)
[2020-12-21] MEDS: TOPIRAMATE 100 MG TABLET PO SCH ×2 (08:32→21:40)
[2020-12-21] MEDS: GABAPENTIN 100 MG CAPSULE PO SCH ×3 (08:32→21:40)
[2020-12-21] MEDS: LEVOTHYROXINE 25 MCG TABLET PO SCH (08:32)
[2020-12-21] MEDS: PANTOPRAZOLE 40 MG IV IVPush SCH (08:32)
[2020-12-21] MEDS: ENOXAPARIN 30 MG/0.3 ML SQ SCH ×2 (08:33→21:41)
[2020-12-21] MEDS: FLUOXETINE HCL 20 MG CAPSULE PO SCH (08:33)
[2020-12-21] MEDS: SODIUM CHLORIDE FLUSH 10ML SYR IVF SCH ×2 (08:33→21:00)
[2020-12-21 16:33] VITALS: BP 130/91
[2020-12-21 18:43] VITALS: BP 103/69
[2020-12-21] MEDS ORDERED: SENNOSIDES 8.6 MG TABLET PO PRN (21:25)
[2020-12-21] MEDS ORDERED: SENNA/DOCUSATE TABLET PO PRN (21:30)
[2020-12-21] MEDS: ZIPRASIDONE 40MG CAPSULE PO SCH (21:40)
[2020-12-22 02:05] VITALS: BP 125/84
[2020-12-22 05:11] LABS: BASOPHILS % (AUTO) 1 % (0-1); EOSINOPHILS % (AUTO) 3 % (1-7); LYMPHOCYTES % (AUTO) 13 % (22-44); MEAN CORPUSCULAR HEMOGLOBIN 31.6 pg (27.5-34.5); MEAN CORPUSCULAR HGB CONC 33.5 g/dL (33.2-36.2); MEAN PLATELET VOLUME 8.3 fL (7.4-10.4); MONOCYTES % (AUTO) 6 % (2-9); NEUTROPHILS % (AUTO) 77 % (42-75); PLATELET COUNT 250 x10^3/uL (130-400); RED BLOOD COUNT 5.09 x10^6/uL (4.38-5.82); RED CELL DISTRIBUTION WIDTH 15.6 % (9.4-14.8)
[2020-12-22 05:16] LABS: ANION GAP 3 mmol/L (5-15); CHLORIDE 104 mmol/L (98-107); CREATININE 0.78 mg/dL (0.7-1.3); TRIGLYCERIDES 140 mg/dL (50-200)
[2020-12-22] MEDS: LEVOTHYROXINE 25 MCG TABLET PO SCH (06:00)
[2020-12-22 06:48] VITALS: BP 130/75
[2020-12-22] MEDS: INSULIN LISPRO 100 UNITS/ML, PEN SQ-INSULIN SCH ×4 (07:00→21:00)
[2020-12-22] MEDS: PANTOPRAZOLE 40 MG IV IVPush SCH (09:32)
[2020-12-22] MEDS: FLUOXETINE HCL 20 MG CAPSULE PO SCH (09:32)
[2020-12-22] MEDS: TOPIRAMATE 100 MG TABLET PO SCH ×2 (09:32→21:50)
[2020-12-22] MEDS: SODIUM CHLORIDE FLUSH 10ML SYR IVF SCH ×2 (09:32→21:00)
[2020-12-22] MEDS: GABAPENTIN 100 MG CAPSULE PO SCH ×3 (09:32→21:49)
[2020-12-22] MEDS: ENOXAPARIN 30 MG/0.3 ML SQ SCH ×2 (09:33→21:50)
[2020-12-22 13:44] VITALS: BP 128/81
[2020-12-22 19:23] VITALS: BP 117/67
[2020-12-22] MEDS: ZIPRASIDONE 40MG CAPSULE PO SCH (21:49)
[2020-12-23 00:12] VITALS: BP 133/82
[2020-12-23 05:04] LABS: BASOPHILS % (AUTO) 1 % (0-1); EOSINOPHILS % (AUTO) 4 % (1-7); LYMPHOCYTES % (AUTO) 17 % (22-44); MEAN CORPUSCULAR HEMOGLOBIN 32.3 pg (27.5-34.5); MEAN PLATELET VOLUME 8.4 fL (7.4-10.4); MONOCYTES % (AUTO) 6 % (2-9); NEUTROPHILS % (AUTO) 72 % (42-75); PLATELET COUNT 242 x10^3/uL (130-400); RED BLOOD COUNT 4.84 x10^6/uL (4.38-5.82); RED CELL DISTRIBUTION WIDTH 15.8 % (9.4-14.8)
[2020-12-23 05:12] LABS: CHLORIDE 106 mmol/L (98-107)
[2020-12-23 05:16] LABS: ANION GAP 3 mmol/L (5-15); CALCIUM 8.7 mg/dL (8.5-10.1); CREATININE 0.66 mg/dL (0.7-1.3)
[2020-12-23] MEDS: LEVOTHYROXINE 25 MCG TABLET PO SCH (05:19)
[2020-12-23] MEDS: INSULIN LISPRO 100 UNITS/ML, PEN SQ-INSULIN SCH ×2 (07:00→11:00)
[2020-12-23] MEDS: GABAPENTIN 100 MG CAPSULE PO SCH ×3 (08:03→22:10)
[2020-12-23] MEDS: PANTOPRAZOLE 40MG TABLET PO SCH (08:03)
[2020-12-23] MEDS: SODIUM CHLORIDE FLUSH 10ML SYR IVF SCH ×2 (08:04→21:00)
[2020-12-23] MEDS: FLUOXETINE HCL 20 MG CAPSULE PO SCH (08:05)
[2020-12-23] MEDS: TOPIRAMATE 100 MG TABLET PO SCH ×2 (08:05→22:11)
[2020-12-23] MEDS: ENOXAPARIN 30 MG/0.3 ML SQ SCH ×2 (08:06→21:00)
[2020-12-23 09:01] VITALS: BP 120/72
[2020-12-23] MEDS: TAMSULOSIN 0.4 MG CAP.ER.24H PO SCH (11:49)
[2020-12-23 13:53] VITALS: BP 115/78
[2020-12-23 19:18] VITALS: BP 118/79
[2020-12-23] MEDS: ZIPRASIDONE 40MG CAPSULE PO SCH (22:11)
[2020-12-24 00:22] VITALS: BP 116/74
[2020-12-24 05:35] LABS: ANION GAP 3 mmol/L (5-15); CHLORIDE 105 mmol/L (98-107); CREATININE 0.77 mg/dL (0.7-1.3)
[2020-12-24] MEDS: SODIUM CHLORIDE FLUSH 10ML SYR IVF SCH ×2 (07:28→21:06)
[2020-12-24] MEDS: TOPIRAMATE 100 MG TABLET PO SCH (09:00)
[2020-12-24] MEDS: PANTOPRAZOLE 40MG TABLET PO SCH (09:10)
[2020-12-24] MEDS: GABAPENTIN 100 MG CAPSULE PO SCH ×3 (09:10→21:06)
[2020-12-24] MEDS: FLUOXETINE HCL 20 MG CAPSULE PO SCH (09:10)
[2020-12-24] MEDS: TOPIRAMATE 25 MG TABLET PO SCH ×2 (09:10→21:06)
[2020-12-24] MEDS: LEVOTHYROXINE 25 MCG TABLET PO SCH (09:10)
[2020-12-24] MEDS: TAMSULOSIN 0.4 MG CAP.ER.24H PO SCH (09:10)
[2020-12-24] MEDS: ENOXAPARIN 30 MG/0.3 ML SQ SCH ×2 (09:11→21:00)
[2020-12-24 14:22] VITALS: BP 120/85
[2020-12-24 19:05] VITALS: BP 119/78
[2020-12-24] MEDS: ZIPRASIDONE 40MG CAPSULE PO SCH (21:06)
[2020-12-25] VITALS (8 sets, daily range): BP systolic 91–115; BP diastolic 56–79
[2020-12-25] MEDS: SODIUM CHLORIDE FLUSH 10ML SYR IVF SCH ×2 (07:12→20:30)
[2020-12-25] MEDS: TOPIRAMATE 25 MG TABLET PO SCH ×2 (07:55→20:31)
[2020-12-25] MEDS: TAMSULOSIN 0.4 MG CAP.ER.24H PO SCH (07:55)
[2020-12-25] MEDS: GABAPENTIN 100 MG CAPSULE PO SCH ×3 (07:55→20:31)
[2020-12-25] MEDS: FLUOXETINE HCL 20 MG CAPSULE PO SCH (07:55)
[2020-12-25] MEDS: LEVOTHYROXINE 25 MCG TABLET PO SCH (07:55)
[2020-12-25] MEDS: ENOXAPARIN 30 MG/0.3 ML SQ SCH ×2 (07:56→20:32)
[2020-12-25] MEDS: PANTOPRAZOLE 40MG TABLET PO SCH (07:56)
[2020-12-25] MEDS: ZIPRASIDONE 40MG CAPSULE PO SCH (20:30)
[2020-12-26 01:02] VITALS: BP 127/87
[2020-12-26] MEDS: LEVOTHYROXINE 25 MCG TABLET PO SCH (05:47)
[2020-12-26 07:14] VITALS: BP 137/83
[2020-12-26] MEDS: SODIUM CHLORIDE FLUSH 10ML SYR IVF SCH ×2 (07:29→21:00)
[2020-12-26] MEDS: TAMSULOSIN 0.4 MG CAP.ER.24H PO SCH (07:44)
[2020-12-26] MEDS: GABAPENTIN 100 MG CAPSULE PO SCH ×3 (07:44→21:14)
[2020-12-26] MEDS: PANTOPRAZOLE 40MG TABLET PO SCH (07:44)
[2020-12-26] MEDS: ENOXAPARIN 30 MG/0.3 ML SQ SCH ×2 (07:44→21:14)
[2020-12-26] MEDS: FLUOXETINE HCL 20 MG CAPSULE PO SCH (07:44)
[2020-12-26] MEDS: TOPIRAMATE 25 MG TABLET PO SCH ×2 (07:44→21:14)
[2020-12-26 12:28] VITALS: BP 125/80
[2020-12-26] MEDS ORDERED: METOPROLOL 1 MG/ML, 5ML IVPush PRN (16:00)
[2020-12-26 21:08] VITALS: BP 119/74
[2020-12-26] MEDS: ZIPRASIDONE 40MG CAPSULE PO SCH (21:14)
[2020-12-27 02:50] VITALS: BP 107/74
[2020-12-27] MEDS: LEVOTHYROXINE 25 MCG TABLET PO SCH (04:53)
[2020-12-27 06:13] LABS: BASOPHILS % (AUTO) 1 % (0-1); EOSINOPHILS % (AUTO) 5 % (1-7); LYMPHOCYTES % (AUTO) 18 % (22-44); MEAN CORPUSCULAR HGB CONC 33.9 g/dL (33.2-36.2); MEAN PLATELET VOLUME 8.5 fL (7.4-10.4); MONOCYTES % (AUTO) 8 % (2-9); NEUTROPHILS % (AUTO) 68 % (42-75); PLATELET COUNT 234 x10^3/uL (130-400); RED BLOOD COUNT 4.74 x10^6/uL (4.38-5.82); RED CELL DISTRIBUTION WIDTH 15.3 % (9.4-14.8)
[2020-12-27 06:18] LABS: ANION GAP 3 mmol/L (5-15); CALCIUM 8.8 mg/dL (8.5-10.1); CHLORIDE 103 mmol/L (98-107); CREATININE 0.66 mg/dL (0.7-1.3)
[2020-12-27] MEDS: SODIUM CHLORIDE FLUSH 10ML SYR IVF SCH ×2 (09:00→20:35)
[2020-12-27] MEDS: PANTOPRAZOLE 40MG TABLET PO SCH (09:03)
[2020-12-27] MEDS: TOPIRAMATE 25 MG TABLET PO SCH ×2 (09:03→20:35)
[2020-12-27] MEDS: TAMSULOSIN 0.4 MG CAP.ER.24H PO SCH (09:03)
[2020-12-27] MEDS: FLUOXETINE HCL 20 MG CAPSULE PO SCH (09:03)
[2020-12-27] MEDS: GABAPENTIN 100 MG CAPSULE PO SCH ×3 (09:03→20:36)
[2020-12-27] MEDS: ENOXAPARIN 30 MG/0.3 ML SQ SCH ×2 (09:03→20:36)
[2020-12-27 12:25] VITALS: BP 116/76
[2020-12-27 18:19] VITALS: BP 102/64
[2020-12-27] MEDS: ZIPRASIDONE 40MG CAPSULE PO SCH (20:35)
[2020-12-28 02:03] VITALS: BP 111/70
[2020-12-28] MEDS: LEVOTHYROXINE 25 MCG TABLET PO SCH (05:22)
[2020-12-28 07:17] VITALS: BP 108/74
[2020-12-28] MEDS: SODIUM CHLORIDE FLUSH 10ML SYR IVF SCH ×2 (09:00→20:07)
[2020-12-28] MEDS: TOPIRAMATE 25 MG TABLET PO SCH ×2 (10:49→20:08)
[2020-12-28] MEDS: GABAPENTIN 100 MG CAPSULE PO SCH ×3 (10:49→20:08)
[2020-12-28] MEDS: TAMSULOSIN 0.4 MG CAP.ER.24H PO SCH (10:49)
[2020-12-28] MEDS: FLUOXETINE HCL 20 MG CAPSULE PO SCH (10:49)
[2020-12-28] MEDS: ENOXAPARIN 30 MG/0.3 ML SQ SCH ×2 (10:50→22:33)
[2020-12-28] MEDS: PANTOPRAZOLE 40MG TABLET PO SCH (10:50)
[2020-12-28 12:10] VITALS: BP 111/75
[2020-12-28 18:46] VITALS: BP 141/85
[2020-12-28] MEDS: ZIPRASIDONE 40MG CAPSULE PO SCH (20:07)
[2020-12-29 02:03] VITALS: BP 103/62
[2020-12-29] MEDS: LEVOTHYROXINE 25 MCG TABLET PO SCH (05:01)
[2020-12-29] MEDS: ENOXAPARIN 30 MG/0.3 ML SQ SCH ×2 (09:00→20:11)
[2020-12-29] MEDS: GABAPENTIN 100 MG CAPSULE PO SCH ×3 (09:32→20:12)
[2020-12-29] MEDS: SODIUM CHLORIDE FLUSH 10ML SYR IVF SCH ×2 (09:32→20:12)
[2020-12-29] MEDS: TAMSULOSIN 0.4 MG CAP.ER.24H PO SCH (09:32)
[2020-12-29] MEDS: TOPIRAMATE 25 MG TABLET PO SCH ×2 (09:32→20:12)
[2020-12-29] MEDS: PANTOPRAZOLE 40MG TABLET PO SCH (09:32)
[2020-12-29] MEDS: FLUOXETINE HCL 20 MG CAPSULE PO SCH (09:32)
[2020-12-29 09:39] VITALS: BP 96/66
[2020-12-29 13:30] VITALS: BP 112/78
[2020-12-29 20:07] VITALS: BP 109/72
[2020-12-29] MEDS: ZIPRASIDONE 40MG CAPSULE PO SCH (20:12)
[2020-12-30 00:59] VITALS: BP 111/71
[2020-12-30] MEDS: LEVOTHYROXINE 25 MCG TABLET PO SCH (05:59)
[2020-12-30] MEDS: PANTOPRAZOLE 40MG TABLET PO SCH (08:12)
[2020-12-30] MEDS: FLUOXETINE HCL 20 MG CAPSULE PO SCH (08:12)
[2020-12-30] MEDS: GABAPENTIN 100 MG CAPSULE PO SCH ×3 (08:12→20:17)
[2020-12-30] MEDS: TOPIRAMATE 25 MG TABLET PO SCH ×2 (08:13→20:17)
[2020-12-30] MEDS: SODIUM CHLORIDE FLUSH 10ML SYR IVF SCH ×2 (08:13→20:25)
[2020-12-30] MEDS: TAMSULOSIN 0.4 MG CAP.ER.24H PO SCH (08:13)
[2020-12-30] MEDS: ENOXAPARIN 30 MG/0.3 ML SQ SCH ×2 (08:14→20:17)
[2020-12-30 09:12] VITALS: BP 114/72
[2020-12-30 13:06] VITALS: BP 108/76
[2020-12-30 18:42] VITALS: BP 110/69
[2020-12-30] MEDS: ZIPRASIDONE 40MG CAPSULE PO SCH (20:17)
[2020-12-31 02:26] VITALS: BP 119/76
[2020-12-31] MEDS: LEVOTHYROXINE 25 MCG TABLET PO SCH (06:00)
[2020-12-31 07:36] VITALS: BP 121/77
[2020-12-31] MEDS: GABAPENTIN 100 MG CAPSULE PO SCH ×3 (07:57→19:54)
[2020-12-31] MEDS: FLUOXETINE HCL 20 MG CAPSULE PO SCH (07:57)
[2020-12-31] MEDS: TOPIRAMATE 25 MG TABLET PO SCH ×2 (07:57→19:54)
[2020-12-31] MEDS: TAMSULOSIN 0.4 MG CAP.ER.24H PO SCH (07:57)
[2020-12-31] MEDS: PANTOPRAZOLE 40MG TABLET PO SCH (07:57)
[2020-12-31] MEDS: ENOXAPARIN 30 MG/0.3 ML SQ SCH ×2 (07:58→19:54)
[2020-12-31] MEDS: SODIUM CHLORIDE FLUSH 10ML SYR IVF SCH ×2 (07:59→19:51)
[2020-12-31 12:02] VITALS: BP 123/78
[2020-12-31 19:26] VITALS: BP 129/75
[2020-12-31] MEDS: ZIPRASIDONE 40MG CAPSULE PO SCH (19:53)
[2021-01-01 00:36] VITALS: BP 117/72
[2021-01-01] MEDS: LEVOTHYROXINE 25 MCG TABLET PO SCH (05:20)
[2021-01-01 08:04] VITALS: BP 104/71
[2021-01-01] MEDS: ENOXAPARIN 30 MG/0.3 ML SQ SCH ×2 (08:40→20:32)
[2021-01-01] MEDS: TAMSULOSIN 0.4 MG CAP.ER.24H PO SCH (08:40)
[2021-01-01] MEDS: SODIUM CHLORIDE FLUSH 10ML SYR IVF SCH ×2 (08:41→09:00)
[2021-01-01] MEDS: GABAPENTIN 100 MG CAPSULE PO SCH ×3 (08:41→20:31)
[2021-01-01] MEDS: TOPIRAMATE 25 MG TABLET PO SCH ×2 (08:41→20:31)
[2021-01-01] MEDS: PANTOPRAZOLE 40MG TABLET PO SCH (08:41)
[2021-01-01] MEDS: FLUOXETINE HCL 20 MG CAPSULE PO SCH (08:41)
[2021-01-01 13:31] VITALS: BP 114/74
[2021-01-01 19:14] VITALS: BP 127/81
[2021-01-01] MEDS: ZIPRASIDONE 40MG CAPSULE PO SCH (20:31)
[2021-01-02 01:44] VITALS: BP 123/80
[2021-01-02] MEDS: LEVOTHYROXINE 25 MCG TABLET PO SCH (05:26)
[2021-01-02] MEDS: TOPIRAMATE 25 MG TABLET PO SCH ×2 (08:06→21:05)
[2021-01-02] MEDS: FLUOXETINE HCL 20 MG CAPSULE PO SCH (08:06)
[2021-01-02] MEDS: GABAPENTIN 100 MG CAPSULE PO SCH ×3 (08:07→21:05)
[2021-01-02] MEDS: TAMSULOSIN 0.4 MG CAP.ER.24H PO SCH (08:07)
[2021-01-02] MEDS: PANTOPRAZOLE 40MG TABLET PO SCH (08:07)
[2021-01-02] MEDS: ENOXAPARIN 30 MG/0.3 ML SQ SCH ×2 (08:07→21:05)
[2021-01-02 08:14] VITALS: BP 120/83
[2021-01-02 12:24] VITALS: BP 125/78
[2021-01-02 21:03] VITALS: BP 105/67
[2021-01-02] MEDS: ZIPRASIDONE 40MG CAPSULE PO SCH (21:04)
[2021-01-03 01:29] VITALS: BP 124/76
[2021-01-03] MEDS: LEVOTHYROXINE 25 MCG TABLET PO SCH (05:26)
[2021-01-03 08:28] VITALS: BP 106/73
[2021-01-03] MEDS: GABAPENTIN 100 MG CAPSULE PO SCH ×3 (09:06→20:36)
[2021-01-03] MEDS: PANTOPRAZOLE 40MG TABLET PO SCH (09:06)
[2021-01-03] MEDS: TAMSULOSIN 0.4 MG CAP.ER.24H PO SCH (09:06)
[2021-01-03] MEDS: ENOXAPARIN 30 MG/0.3 ML SQ SCH ×2 (09:06→20:41)
[2021-01-03] MEDS: TOPIRAMATE 25 MG TABLET PO SCH ×2 (09:07→20:36)
[2021-01-03] MEDS: FLUOXETINE HCL 20 MG CAPSULE PO SCH (09:07)
[2021-01-03 13:19] VITALS: BP 116/71
[2021-01-03 20:16] VITALS: BP 91/63
[2021-01-03] MEDS: ZIPRASIDONE 40MG CAPSULE PO SCH (20:36)
[2021-01-04 01:25] VITALS: BP 89/64
[2021-01-04] MEDS: LEVOTHYROXINE 25 MCG TABLET PO SCH (05:10)
[2021-01-04 07:41] VITALS: BP 101/72
[2021-01-04] MEDS: GABAPENTIN 100 MG CAPSULE PO SCH ×3 (08:33→20:02)
[2021-01-04] MEDS: ENOXAPARIN 30 MG/0.3 ML SQ SCH ×2 (08:33→20:02)
[2021-01-04] MEDS: TOPIRAMATE 25 MG TABLET PO SCH ×2 (08:33→20:02)
[2021-01-04] MEDS: TAMSULOSIN 0.4 MG CAP.ER.24H PO SCH (08:33)
[2021-01-04] MEDS: PANTOPRAZOLE 40MG TABLET PO SCH (08:33)
[2021-01-04] MEDS: FLUOXETINE HCL 20 MG CAPSULE PO SCH (08:34)
[2021-01-04 13:49] VITALS: BP_SYST 106; BP_SYST 166; BP_DIAS 77
[2021-01-04 19:00] VITALS: BP 115/70
[2021-01-04] MEDS: ZIPRASIDONE 40MG CAPSULE PO SCH (20:02)
[2021-01-05 00:11] VITALS: BP 104/65
[2021-01-05] MEDS: LEVOTHYROXINE 25 MCG TABLET PO SCH (04:55)
[2021-01-05 05:18] LABS: CREATININE 0.87 mg/dL (0.7-1.3)
[2021-01-05 07:43] VITALS: BP 120/83
[2021-01-05] MEDS: PANTOPRAZOLE 40MG TABLET PO SCH (08:38)
[2021-01-05] MEDS: TOPIRAMATE 25 MG TABLET PO SCH (08:39)
[2021-01-05] MEDS: GABAPENTIN 100 MG CAPSULE PO SCH ×2 (08:39→15:15)
[2021-01-05] MEDS: FLUOXETINE HCL 20 MG CAPSULE PO SCH (08:40)
[2021-01-05] MEDS: TAMSULOSIN 0.4 MG CAP.ER.24H PO SCH (08:41)
[2021-01-05] MEDS: ENOXAPARIN 30 MG/0.3 ML SQ SCH (08:42)
[2021-01-05] MEDS ORDERED: TAMS-11 PO (12:56)
[2021-01-05] MEDS ORDERED: GABA-826 PO (12:56)
[2021-01-05] MEDS ORDERED: LEVO25TA2 PO (12:56)
[2021-01-05] MEDS ORDERED: PANT40TA6 PO (12:56)
[2021-01-05] MEDS ORDERED: TOPI25TA32 PO (12:56)
[2021-01-05] MEDS ORDERED: ZIPR40CA2 PO (12:56)
[2021-01-05] MEDS ORDERED: FLUO20CA23 PO (12:56)
[2021-01-05 12:58] VITALS: BP 108/84
== END 2021-01-05 15:20 | disposition home or self-care (01) | DRG 208 ==
LOC: CCU 13:48 → 3N 12-21 13:04 → 4WST 12-26 17:12 → 3N 12-26 17:26 → 4WST 12-26 17:29 → 3N 12-30 17:43 → DCLOUNGE 01-05 15:08
PROVIDERS: ADMIT Internal Medicine; ATTEND Internal Medicine
PROC: 5A1935Z Respiratory Ventilation, Less than 24 Consecutive Hours (ICD-10-PCS; principal; 2020-12-19)
PROC: 0BH17EZ Insertion of Endotracheal Airway into Trachea, Via Natural or Artificial Opening (ICD-10-PCS; 2020-12-19)
PROC: 4A143B0 Monitoring of Venous Pressure, Central, Percutaneous Approach (ICD-10-PCS; 2020-12-19)
PROC: 05HM33Z Insertion of Infusion Device into Right Internal Jugular Vein, Percutaneous Approach (ICD-10-PCS; 2020-12-19)
PROC: B543ZZA Ultrasonography of Right Jugular Veins, Guidance (ICD-10-PCS; 2020-12-19)
PROC: 5A09357 Assistance with Respiratory Ventilation, Less than 24 Consecutive Hours, Continuous Positive Airway Pressure (ICD-10-PCS; 2020-12-19)
PROC: 5A0945A Assistance with Respiratory Ventilation, 24-96 Consecutive Hours, High Flow/Velocity Cannula (ICD-10-PCS; 2020-12-20)
PROC: 5A09357 Assistance with Respiratory Ventilation, Less than 24 Consecutive Hours, Continuous Positive Airway Pressure (ICD-10-PCS; 2020-12-23)
PROC: 5A09457 Assistance with Respiratory Ventilation, 24-96 Consecutive Hours, Continuous Positive Airway Pressure (ICD-10-PCS; 2020-12-24)
PROC: 5A09357 Assistance with Respiratory Ventilation, Less than 24 Consecutive Hours, Continuous Positive Airway Pressure (ICD-10-PCS; 2020-12-26)
PROC: 5A09457 Assistance with Respiratory Ventilation, 24-96 Consecutive Hours, Continuous Positive Airway Pressure (ICD-10-PCS; 2020-12-27)
PROC: 5A09557 Assistance with Respiratory Ventilation, Greater than 96 Consecutive Hours, Continuous Positive Airway Pressure (ICD-10-PCS; 2020-12-30)
DX: J96.22 Acute and chronic respiratory failure with hypercapnia (principal); G93.41 Metabolic encephalopathy; R45.851 Suicidal ideations; Z68.44 Body mass index [BMI] 60.0-69.9, adult; E66.2 Morbid (severe) obesity with alveolar hypoventilation; E87.2 Acidosis; J96.21 Acute and chronic respiratory failure with hypoxia; F17.210 Nicotine dependence, cigarettes, uncomplicated; R33.9 Retention of urine, unspecified; R53.81 Other malaise; E03.9 Hypothyroidism, unspecified; F15.10 Other stimulant abuse, uncomplicated; F25.0 Schizoaffective disorder, bipolar type; Z91.19 Patient's noncompliance with other medical treatment and regimen; Z91.5 Personal history of self-harm
CPT/HCPCS: 36415; 36600; 71045; 80048; 80053; 82565; 82803; 82962; 83735; 84478; 84484; 85025; 87070; 87081; 87205; 93005; 94002; 94003; 94660; G0378; J1650; J2704; C9113; J3475

== ENCOUNTER 2021-02-15 19:56 | Observation (INO) | payer MEDICARE, MEDICAID ==
[~2021-02-15] VITALS: Ht 165.1 cm; Wt 186.6 kg
[~2021-02-15 19:56] MED LIST changes: +GABA-826 PO; +PANT40TA6 PO; +TAMS-11 PO; +TOPI25TA32 PO
[2021-02-15 19:58] VITALS: BP 134/63
--- NOTE | 2021-02-15 19:58 | NUR ---
Pt BIB EMS. Arrived with c/o SI. Plan was to cut self with knife but called EMS prior to taking it "too far". Pt self inflicted small abrasion with knife to L lower arm, pt stated "I wanted to see how sharp the knife was to see if I could kill myself". Abrasion is superficial and scabbed over. Pt chanbged into gown, all belongings placed in locker, ambulatory to restroom to provide UA. All VSS. Room secured. Sitter at bedside. WCTM.
[2021-02-15 20:46] LABS: BASOPHILS % (AUTO) 1 % (0-1); EOSINOPHILS % (AUTO) 2 % (1-7); LYMPHOCYTES % (AUTO) 25 % (22-44); MEAN CORPUSCULAR HEMOGLOBIN 31.2 pg (27.5-34.5); MEAN CORPUSCULAR HGB CONC 33.6 g/dL (33.2-36.2); MEAN PLATELET VOLUME 8.4 fL (7.4-10.4); MONOCYTES % (AUTO) 8 % (2-9); NEUTROPHILS % (AUTO) 64 % (42-75); PLATELET COUNT 299 x10^3/uL (130-400); RED BLOOD COUNT 4.94 x10^6/uL (4.38-5.82); RED CELL DISTRIBUTION WIDTH 14.3 % (9.4-14.8)
[2021-02-15 20:53] LABS: AMPHETAMINE SCREEN, URINE Negative (Negative); BARBITURATE SCREEN, URINE Negative (Negative); BENZODIAZEPINE SCREEN, URINE Negative (Negative); CANNABINOID SCREEN, URINE Negative (Negative); COCAINE SCREEN, URINE Negative (Negative); METHADONE SCREEN, URINE Negative (Negative); OPIATE SCREEN, URINE Negative (Negative)
[2021-02-15 20:55] LABS: ALANINE AMINOTRANSFERASE 21 U/L (12-78); ALBUMIN 2.9 g/dL (3.4-5.0); ANION GAP 5 mmol/L (5-15); CALCIUM 8.4 mg/dL (8.5-10.1); CHLORIDE 106 mmol/L (98-107); CREATININE 0.78 mg/dL (0.7-1.3)
--- NOTE | 2021-02-15 21:00 | NUR ---
Pt currently watching TV, sitter in sight of pt, telepsych monitor in room, TRESA
[2021-02-15 21:04] LABS: ALKALINE PHOSPHATASE 62 U/L (45-117); BILIRUBIN,TOTAL 0.6 mg/dL (0.2-1.0)
[2021-02-15 21:08] LABS: SALICYLATE LEVEL < 1.7 mg/dL (2.8-20.0)
--- NOTE | 2021-02-15 22:02 | NUR ---
Pt provided water as requested, sitter in view of pt, TRESA, RAHTM
--- NOTE | 2021-02-15 23:01 | NUR ---
Telepsych called to ensure camera was in room
--- NOTE | 2021-02-16 00:42 | NUR ---
Pt requesting to be placed on oxygen at this time. States he uses 2L NC at home when he sleeps. Wishes accommodated at this time. Received verbal affirmation that pt will not try to hurt himself with oxygen tubing and will use it accordingly.
--- NOTE | 2021-02-16 00:52 | NUR ---
[facility]
--- NOTE | 2021-02-16 01:03 | NUR ---
PSYCH PACKET FAXED [facility], [facility], [facility], ALYSSA Michael
--- NOTE | 2021-02-16 01:28 | NUR ---
Report to Jhonny VEGA
--- NOTE | 2021-02-16 01:33 | NUR ---
ECONOMIC ANALYST: CALLED [facility]. PER SILVIA LATHAM THEY ARE UNABLE TO VERIFY INSURANCE AT THIS TIME. [facility] CALLED BACK WITH ACCEPTING MD AT THIS TIME.
--- NOTE | 2021-02-16 01:35 | NUR ---
Report to Germaine VEGA at [facility], transport to facility at [phone]
--- NOTE | 2021-02-16 01:37 | NUR ---
In the process of verifying patient's insurance, attempted to call psychiatrist twice for admission, no answer, left a voicemail, informed ER throughput.
--- NOTE | 2021-02-16 01:52 | NUR ---
NOAH RN: [facility] accepting; ada Payan.
--- NOTE | 2021-02-16 02:09 | NUR ---
[facility] DENIED TRANSPORT VIA [facility].
--- NOTE | 2021-02-16 02:12 | NUR ---
SPOKE WITH [facility] TRANSPORT TO [facility] IS SET UP FOR TODAY 02/16/21 @ [id number]
--- NOTE | 2021-02-16 03:13 | NUR ---
Report given to BRANDAN Weir medical instrument technician. No questions. Pt ambulated out of the ED transported to [facility] with personal belongings labeled and secured, and originial copy of legal hold.
== END 2021-02-16 04:08 | disposition home or self-care (01) ==
LOC: ED 20:43 → EDIP 02-16 00:48
PROVIDERS: ADMIT Emergency Medicine; ATTEND Emergency Medicine
DX: R45.851 Suicidal ideations (principal); E11.9 Type 2 diabetes mellitus without complications; E03.9 Hypothyroidism, unspecified; F31.9 Bipolar disorder, unspecified; F41.1 Generalized anxiety disorder; F60.9 Personality disorder, unspecified; F20.9 Schizophrenia, unspecified; Z63.8 Other specified problems related to primary support group; Z79.899 Other long term (current) drug therapy
CPT/HCPCS: 36415; 80053; 80299; 80307; 80320; 80329; 85025; 99284; G0378; G0480